=== PATIENT | male | born 1990 | race Caucasian/White ===

== ENCOUNTER 2023-09-29 11:34 | Day surgery (SDC) | payer BC ==
[2023-09-29] MEDS: Lactated Ringers 1,000 ML IV SCH (11:43)
[2023-09-29] MEDS ORDERED: Propofol 200 MG/20 ML SDV ONE ×2 (11:50)
[2023-09-29] MEDS ORDERED: Lidocaine 2% 20 ML MDV ONE (11:50)
[2023-09-29] MEDS ORDERED: fentaNYL 50 MCG/ML SDV ONE (11:50)
[2023-09-29] MEDS ORDERED: Ketamine 200 MG/20 ML MDV ONE (11:50)
[2023-09-29] MEDS ORDERED: Midazolam 1 MG/ML 2 ML SDV ONE (11:50)
== END 2023-09-29 13:18 | disposition home or self-care (01) ==
LOC: CC.SDS 11:34
PROVIDERS: ATTEND Family Medicine
DX: K29.50 Unspecified chronic gastritis without bleeding (principal); K52.9 Noninfective gastroenteritis and colitis, unspecified; K21.9 Gastro-esophageal reflux disease without esophagitis
CPT/HCPCS: 00813; 87081; J2250; J2704; J3010; J3490; J7120

== ENCOUNTER 2024-11-15 09:43 | Day surgery (SDC) | payer BC ==
[2024-11-15] MEDS: Lactated Ringers 1,000 ML IV SCH (10:03)
[2024-11-15] MEDS ORDERED: Midazolam 1 MG/ML 2 ML SDV ONE (10:10)
[2024-11-15] MEDS ORDERED: fentaNYL 50 MCG/ML SDV ONE ×2 (10:10)
[2024-11-15] MEDS ORDERED: Propofol 200 MG/20 ML SDV ONE (10:10)
== END 2024-11-15 11:31 | disposition home or self-care (01) ==
LOC: CC.SDS 09:43
PROVIDERS: ATTEND Family Medicine
DX: D12.3 Benign neoplasm of transverse colon (principal); K50.90 Crohn's disease, unspecified, without complications; K21.9 Gastro-esophageal reflux disease without esophagitis; F41.9 Anxiety disorder, unspecified; M25.50 Pain in unspecified joint; Z79.899 Other long term (current) drug therapy
CPT/HCPCS: 00811; J2250; J2704; J3010; J7120